=== PATIENT | male | born 2000 | race African-American/Black ===

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

== ENCOUNTER 2020-08-27 10:36 | Emergency (ER) | payer OTHER, SELFPAY ==
[2020-08-27 10:37] VITALS: BP 182/92; PULSE 81; RESP 18; TEMP 36.3; O2SAT 99; BMI 36.4
--- NOTE | 2020-08-27 10:47 | ED.DCSUM_ITS ---
History of Present Illness Chief Complaint: Sore Throat Informant: Patient Onset: Days - Yesterday/24 to 48 hours Context: Sudden Onset Timing: Continuous Quality: Pain Location: Throat Current Severity: Mild Maximum Severity: Moderate Worsened by: Swallowing liquids or solids Relieved by: Nothing Associated Symptoms: Change in voice yesterday Narrative: Patient is a 20-year-old male who presents with sore throat. He denies fever or chills. He denies cough. He denies runny nose. He denies history rheumatic fever, heart murmur, SBE or being on immunosuppressive meds. He has been around individuals who have had viral-like symptoms. Prior similar symptoms: No Recent Illness/Hospitalization: No - Past Medical History (1) No significant past medical history Status: Acute Past Medical History - Allergies and Home Meds Allergies/Adverse Reactions: Allergies No Known Allergies Allergy (Verified 08/27/20 10:37) Primary Care Physician: Bhavna Aleman MD [Primary Care Provider] - Prior records reviewed: No Past Medical History: None Surgical History: no surgical history Lives: Alone Smoking Status: Never smoker Alcohol: None Drugs: None Review of Systems General: Denies: Chills, Fever, Malaise, Subjective Eyes: Denies: Visual changes - bilaterally, Blurred Vision - bilaterally ENT: Reports: Sore throat. Denies: Bilateral ear pain, Rhinorrhea Cardiovascular: Denies: Chest pain, Palpitations Respiratory: Denies: Dyspnea, Cough, Dyspnea on exertion Gastrointestinal: Denies: Nausea, Vomiting, Diarrhea Musculoskeletal: Denies: Myalgias, Arthralgias Skin: Denies: Rash Neurological: Denies: Headache Physical Exam Vital Signs/Narrative: Vital Signs Temp Pulse Resp BP Pulse Ox 08/27/20 10:37 97.3 F L 81 18 182/92 H 99 Inital Vital Signs reviewed: Yes General: Well nourished, Well developed, No Acute Distress Head: Normocephalic, Atraumatic Eyes: Perrl, EOMI. Negative for: Pale conjunctiva, Scleral icterus ENT: Moist mucous membranes, No rhinorrhea, - - Tonsils are enlarged. There is no exudate. There may be slight erythema. Uvula is midline. There is no trismus. Trachea is midline. There is no inspiratory expiratory stridor. Neck: Supple, Nontender, No lymphadenopathy, No JVD, - Cardiovascular: Regular rate, Regular rhythm, No murmurs, Normal S1, Normal S2 Respiratory: No distress, CTA bilaterally Neurological: Alert, Oriented x3, Cranial nerves II-XII grossly intact, Normal Gait Psychological: Normal affect Diagnostic/Tx/Re-eval - Medical Decision Making Patient presents with sore throat. With exposure to friends who have had viral illness suspect this is viral pharyngitis. Patient was discharged home with a ppropriate home-going instructions. ED Disposition - Plan for ED Patient: Disposition: Home or Assisted Living Diagnosis: Acute pharyngitis, unspecified, High blood pressure Instructions: ED Pharyngitis Viral, ED HBP No Tx Referrals: Bhavna Aleman MD [Primary Care Provider] - As Needed Additional Instructions: 1. Salt water gargles 6-8 times a day 2. Either use Cepastat or Chloraseptic spray for your throat pain. 3. If you have difficulty swallowing or unable to open your mouth completely return to the emergency department 4. Your blood pressure is elevated for a 20-year-old. You need to follow-up with your doctor to have it rechecked in 1 to 2 weeks.
== END 2020-08-27 11:01 | disposition home or self-care (01) ==
LOC: ED 10:58
PROVIDERS: Emergency Provider Emergency Medicine
DX: J02.9 Acute pharyngitis, unspecified (principal); R03.0 Elevated blood-pressure reading, without diagnosis of hypertension
CPT/HCPCS: 99281

== ENCOUNTER 2023-02-06 15:31 | Emergency (ER) | payer OTHER, SELFPAY ==
[2023-02-06 15:32] VITALS: BP 153/83; PULSE 91; RESP 18; TEMP 37.3; BMI 32.2
[2023-02-06 15:35] VITALS: BP 153/83; PULSE 91; RESP 18; TEMP 37.3
--- NOTE | 2023-02-06 16:31 | ED.VIS.GI ---
HPI HPI - GI History of Present Illness Chief Complaint: Abd Pain Informant: spouse/S.O. Abdominal Pain/Flank Pain Onset: Days (3 days ago) Context: Gradual Onset Timing: Waxes and wanes Location: Epigastric Current Severity: Moderate Maximum Severity: Severe Narrative Narrative: Patient presents secondary to epigastric abdominal pain that started 3 days ago. He has indigestion and nausea with diarrhea. Fever has not been above 99. Patient was seen at [facility] yesterday where lab work was completed along with a CT scan. states that they were told he likely has an ulcer. He was given BMX, Zofran, Prilosec. They present to the ER today because he continues to have pain and they wanted to ensure everything was done appropriately. PFSH PFSH Medical History no medical history no medical history Home Medications enalapril maleate 10 mg tablet 30 mg PO DAILY HTN 03/28/17 [History Last Taken Unknown] metformin 500 mg tablet 500 mg PO BID DM 03/28/17 [History Last Taken Unknown] hydrocodone-acetaminophen 5-325mg 5mg-325mg 1 tab PO Q6H PRN PRN Pain 3 days #10 TABLETS 02/06/23 [Rx Last Taken Unknown] Allergy/AdvReac Type Severity Reaction Status Date / Time No Known Allergies Allergy Verified 08/27/20 10:37 Social History Smoking Status: Never smoker ROS ROS ED Constitutional Constitutional ED: Denies chills or fever(s) Eyes Eyes: Denies discharge from eye(s) ENT ENT ED: Denies discharge from eye(s), rhinorrhea or sore throat Cardiovascular Cardiovascular: Denies chest pain or palpitations Respiratory/Chest Respiratory/Chest: Denies cough or dyspnea Gastrointestinal Gastrointestinal: Reports abdominal pain, diarrhea and nausea; Denies vomiting Genitourinary Genitourinary ED: Denies dysuria Musculoskeletal Musculoskeletal: Denies back pain or extremity pain Integumentary Denies Abrasions or rash Neurologic Neurologic: Denies headache(s) or weakness Allergic/Immunologic Allergic/Immunologic ED: Denies lip swelling or urticaria EXAM Physical Exam Const Vital Signs: 02/06/23 15:32 02/06/23 15:35 Temperature 99.2 F H 99.2 F H Temperature Source Temporal Temporal Pulse Rate 91 91 Respiratory Rate 18 18 Blood Pressure 153/83 H 153/83 H Blood Pressure Mean 106 106 Positive well nourished and well developed General Appearance ED: well developed HEENT Reports normocephalic and head/scalp atraumatic Eyes PERRL and EOMs intact bilaterally Neck supple Chest Wall inspection of chest normal and palpation of chest normal Resp normal respiratory effort and clear to auscultation bilaterally Cardio regular rate and regular rhythm GI GI Narrative: Abdomen soft with epigastric tenderness to palpation. Hypoactive bowel sounds. Palpation: soft Extremity normal to inspection Neuro oriented x3 Neuro Narrative: Resting with eyes closed and answers questions for him. Sensorium / Orientation: alert Psych mental status grossly normal Skin no rashes or lesions noted MDM MDM MDM Narrative Medical decision making narrative: I did review the patient's work-up from [place] yesterday including lab work and CT scan. Patient given morphine and Zofran here along with IV fluids. Labwork obtained to evaluate for leukocytosis, anemia, and electrolyte derangement. Urinalysis obtained to evaluate for infection/hematuria. Stool studies ordered as patient now states he is having diarrhea. Lab Data Attestation: I reviewed the patient's lab results. Labs: Laboratory Results - last 24 hr 02/06/23 02/06/23 02/06/23 16:55 16:55 18:35 WBC 6.1 RBC 6.05 Hgb 15.3 Hct 48.3 MCV 79.8 L MCH 25.3 L MCHC 31.7 L RDW Std Deviation 39.5 RDW Coeff of Amy 13.7 Plt Count 194 MPV 12.0 Immature Gran % (Auto) 0.300 Neut % (Auto) 74.1 H Lymph % (Auto) 12.4 L [place] % (Auto) 11.9 H Eos % (Auto) 0.8 Baso % (Auto) 0.5 Absolute Neuts (auto) 4.5 Absolute Lymphs (auto) 0.75 L Nucleated RBC % 0 Sodium 138 Potassium 3.5 Chloride 108 H Carbon Dioxide 23.0 Anion Gap 7 BUN 11 Creatinine 0.92 Estim Creat Clear Calc 154.63 Est GFR (MDRD) Af Amer 131 Est GFR (MDRD) Non-Af 108 BUN/Creatinine Ratio 11.9 Glucose 102 Calcium 8.1 L Total Bilirubin 0.40 Direct Bilirubin 0.13 AST 11 L ALT 27 Alkaline Phosphatase 79 Total Protein 7.2 Albumin 3.4 Globulin 3.8 Lipase 77 Urine Color Yellow Urine Clarity Sl. Cloudy Urine pH 6.0 Ur Specific [place] 1.020 Urine Protein 15 H Urine Glucose (UA) Normal Urine Ketones 5 H Urine Occult Blood Negative Urine Nitrite Negative Urine Bilirubin 1 H Urine Urobilinogen 1 H Ur Leukocyte Esterase 25 H Urine RBC 0 SEEN Urine WBC 0-5 SEEN Ur Squamous Epith Cells 0-5 SEEN Amorphous Sediment 1+ URATE Urine Bacteria 0 SEEN Urine Mucus 0 SEEN EKG Initial EKG: Attestation: I personally reviewed and interpreted this EKG as follows: Interpretation: Sinus Rhythm (Sinus at 84 with no acute ischemia. Nonspecific lateral T wave flattening.) Differential Diagnosis Abdominal Pain: Cholecystitis Reason(s) Cholecystitis less likely: other (Normal lab work today and normal gallbladder imaging yesterday.) and Pancreatitis Reason(s) Pancreatitis less likely: NL lab values Treatment and Re-Evaluation :: CBC was normal white count with 74% neutrophils. Hemoglobin is normal at 15.3. Chemistry studies unremarkable. LFTs and lipase are normal. Urinalysis reveals no evidence of infection or hematuria. 5 ketones noted. Stool studies were ordered but patient has not had any diarrhea while here in the emergency room. I did carefully review the CT scan was performed yesterday. Gallbladder appears normal with no evidence of sludge, gallstones, wall thickening. I do not think emergent ultrasound is needed at this time with normal labs. Patient is to continue the medications previously prescribed. I will write him a short course of [place] to help with pain. He is referred to Dr. Hall for follow-up as needed. Discharge Plan Triage Chief Complaint: Abd Pain ED Provider: Emma Machuca Dx/Rx/DC Orders Clinical Impression: Epigastric pain Instructions: ED Epigastric Pain Uncertain Cause Prescriptions: New hydrocodone-acetaminophen 5-325 mg tablet 1 tab PO Q6H PRN PRN (Reason: Pain) 3 Days Qty: 10 0RF No Action metformin 500 MG tablet 500 mg PO BID Label Comments: take 2 tablets by mouth daily BEFORE BREAKFAST and 2 BEFORE DINNER enalapril maleate 10 MG tablet 30 mg PO DAILY Label Comments: take 3 tablets by mouth daily Primary Care Provider: Tam Pollock NP Referrals: Raman Hall DO [Med Staff - Active Staff] - As Needed Care Physician,No Primary [Non-Staff] - Disposition Disposition: Home, Self Care Discharge Date/Time: 02/06/23 19:23
--- NOTE | 2023-02-06 16:36 | NURSING ---
NO OLD EKGS
[2023-02-06] MEDS: Ondansetron 4 MG/2 ML Vial IV (16:53)
[2023-02-06] MEDS: 0.9% Normal Saline 1,000 ML 1000 ML IV (16:53)
[2023-02-06] MEDS: Morphine 4 MG/ML Syringe IV (16:54)
[2023-02-06 17:03] LABS: Absolute Lymphocyte Count 0.75 X10^3/uL (0.83-4.51); Absolute Neutrophil Count 4.5 X10^3/uL (2.0-7.7); Basophil# 0.03 X10^3/uL; Basophil% 0.5 % (0-1); Eosinophil# 0.05 X10^3/uL; Eosinophils% 0.8 % (0-5); Hematocrit 48.3 % (40-54); Hemoglobin 15.3 g/dL (13.0-16.5); Lymphocyte # 0.75 X10^3/ul (0.83-4.51); Lymphocyte % 12.4 % (19-41); Mean Corp Hgb Conc 31.7 g/dL (32-36); Mean Corpuscular Hgb 25.3 pg (27.0-32.0); Mean Corpuscular Volume 79.8 fL (80-94); Monocyte# 0.72 X10^3/uL; Monocyte% 11.9 % (0-10); NRBC Flagged by Analyzer 0 % (0-5); Neutrophil % 74.1 % (47-70); Platelet Count 194 K/mm3 (150-450); RBC Distribution Width CV 13.7 % (11.6-14.6); RBC Distribution Width SD 39.5 fl (35.1-43.9); Red Blood Count 6.05 M/mm3 (4.6-6.2); White Blood Count 6.1 K/mm3 (4.4-11.0)
[2023-02-06 17:17] LABS: AST(SGOT) 11 U/L (15-37); Alanine Aminotransfer ALT/SGPT 27 U/L (16-61); Albumin, Serum 3.4 g/dL (3.2-5.0); Alkaline Phosphatase 79 U/L (45-117); Anion Gap 7 (5-15); BUN 11 mg/dL (7-18); BUN/Creat Ratio 11.9 RATIO (10-20); Bilirubin, Direct 0.13 mg/dL (0.00-0.30); Calcium,Total 8.1 mg/dL (8.5-10.1); Chloride 108 mmol/L (98-107); Creatinine, Serum 0.92 mg/dL (0.70-1.30); EST Glomerular Filtration Rate 108 mL/min (>60); Est Glom Filt Rate - Afr Amer 131 mL/min (>60); Estimated Creatinine Clearance 154.63 ml/min; Globulin 3.8 g/dL (2.2-4.2); Glucose 102 mg/dL (74-106); Lipase 77 U/L (73-393); Potassium 3.5 mmol/L (3.5-5.1); Protein, Total 7.2 g/dL (6.4-8.2); Sodium Level 138 mmol/L (136-145)
[2023-02-06 18:46] LABS: Bacteria 0 SEEN /hpf (None Seen); Mucous, Urine 0 SEEN /hpf (<or=2+); Red Blood Cells-Urine 0 SEEN /hpf (0-5)
[2023-02-06 18:51] LABS: Color, Urine Yellow (Yellow); Glucose, Dipstick Normal (Normal); Ketone-Dipstick 5 mg/dl (Negative); Leukocyte Esterase-Dipstick 25 /ul (Negative); Nitrite-Dipstick Negative (Negative); Occult Blood-Urine Negative /ul (Negative); Protein-Dipstick 15 mg/dl (Negative); Urine Clarity Sl. Cloudy (Clear); Urine Urobilinogen 1 mg/dl (Normal)
[2023-02-06 18:54] LABS: Urine Bilirubin Dipstick 1 mg/dL (Negative)
[2023-02-06 18:55] LABS: Amorphous Sediment 1+ URATE; Squamous Epithelial Cells - UA 0-5 SEEN /hpf (0-5); White Blood Cells 0-5 SEEN /hpf (0-5)
== END 2023-02-06 19:23 | disposition home or self-care (01) ==
PROVIDERS: Emergency Provider Emergency Medicine; PCP Nurse Practitioner Primary Care; Visit Provider Emergency Medicine
DX: R10.13 Epigastric pain (principal); R11.0 Nausea; R50.9 Fever, unspecified; R19.7 Diarrhea, unspecified
CPT/HCPCS: 80048; 80076; 81001; 83690; 85025; 93005; 96361; 96374; 96375; 99283; J7030; J7050; A4216; J2405